=== PATIENT | male | born 1940 | race Hispanic/Latino ===

== ENCOUNTER 2018-02-21 13:55 | Outpatient (CLI) | payer MEDICARE, BC | END 2018-02-21 13:56 | disposition home or self-care (01) | LOC: CARDIO 13:55 | DX: Z45.010 Encounter for checking and testing of cardiac pacemaker pulse generator [battery] (principal) ==

== ENCOUNTER 2018-04-18 09:00 | Outpatient (CLI) | payer MEDICARE, BC | END 2018-04-18 09:15 | disposition home or self-care (01) | LOC: CARDIO 09:00 ==

== ENCOUNTER 2018-04-26 06:11 | Outpatient (CLI) | payer MEDICARE, BC | END 2018-04-26 06:12 | disposition home or self-care (01) | LOC: CARDIO 06:11 ==

== ENCOUNTER → 2018-06-13 | Outpatient (CLI) | payer MEDICARE, BC | LOC: CARDIO 12:59 ==